=== PATIENT | female | born 1960 | race Caucasian/White ===

== ENCOUNTER 2017-08-28 15:52 | Emergency (ER) | payer OTHER ==
[2017-08-28] MEDS: LIDOCAINE 1% (MDV) 20 ML INJ SC (16:29)
== END 2017-08-28 17:22 | disposition home or self-care (01) ==
LOC: FTE 15:52
DX: L02.212 Cutaneous abscess of back [any part, except buttock and flank] (principal)
CPT/HCPCS: 10060; 99282-25

== ENCOUNTER 2017-12-06 20:33 | Emergency (ER) | payer OTHER ==
[2017-12-06] MEDS: CEFTRIAXONE 1 GM/50 ML (PMX) 50 ML IVPB (22:44)
[2017-12-06] MEDS: DEXAMETHASONE 10 MG/ML 1 ML INJ IV (22:44)
== END 2017-12-07 00:02 | disposition home or self-care (01) ==
LOC: FTE 12-07 00:02
DX: L03.115 Cellulitis of right lower limb (principal)
CPT/HCPCS: 96374; 96375; 99284-25

== ENCOUNTER 2018-12-20 09:41 | Emergency (ER) | payer OTHER | END 2018-12-20 11:42 | disposition home or self-care (01) | LOC: FTE 09:41 | DX: H57.9 Unspecified disorder of eye and adnexa (principal) | CPT/HCPCS: 99283; Z7502 ==